=== PATIENT | female | born 1990 | race Two or more races ===

== ENCOUNTER 2020-08-20 10:30 | Day surgery (SDC) | payer OTHER | END 2020-08-21 01:00 | disposition home or self-care (01) | LOC: CIR.AMB 10:30 | PROVIDERS: ATTEND Obstetrics & Gynecology | DX: O02.1 Missed abortion (principal); Z20.828 Contact with and (suspected) exposure to other viral communicable diseases ==

== ENCOUNTER 2023-02-18 15:15 | Inpatient (IN) | payer OTHER ==
[~2023-02-18] VITALS: Ht 172.7 cm; Wt 75.7 kg
== END 2023-02-25 18:18 | disposition home or self-care (01) | DRG 807 ==
LOC: LDR 02-23 06:59 → OB/GYN 02-23 15:37 → SURG 02-24 15:15 → OB/GYN 02-25 18:18
PROVIDERS: ADMIT Obstetrics & Gynecology; ATTEND Obstetrics & Gynecology
PROC: 10E0XZZ Delivery of Products of Conception, External Approach (ICD-10-PCS; principal; 2023-02-23)
PROC: 4A1HXCZ Monitoring of Products of Conception, Cardiac Rate, External Approach (ICD-10-PCS; 2023-02-23)
DX: O80 Encounter for full-term uncomplicated delivery (principal); Z37.0 Single live birth; Z3A.39 39 weeks gestation of pregnancy; Z20.822 Contact with and (suspected) exposure to COVID-19